=== PATIENT | male | born 1975 | race Caucasian/White ===

== ENCOUNTER 2018-02-09 00:45 | Emergency (ER) | payer OTHER ==
[~2018-02-09] VITALS: Ht 188 cm; Wt 103.0 kg
[2018-02-09 00:50] VITALS: BP 138/91; PULSE 81; RESP 18; TEMP 97.8; O2SAT 98
[2018-02-09] MEDS ORDERED: LIDOCAINE 1%/EPINEPHrine 1:100,000 SOLN 20 ML VIAL INFIL ONE (02:15)
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
--- NOTE | 2018-02-09 03:16 | RADRPT ---
EXAM DATE/TIME: 02/09/2018 02:30 [facility] COMPARISON: No previous studies available for comparison. INDICATIONS : Pain of the left first digit from unknown source. MEDICAL HISTORY : None. SURGICAL HISTORY : None. ENCOUNTER: Initial ACUITY: 1 day PAIN SCORE: 5/10 LOCATION: Left thumb FINDINGS: Three view examination of the left hand demonstrates no soft tissue swelling, dislocation, or fractur e. The carpal bones appear intact. The interphalangeal and metacarpophalangeal joints are intact. Bony mineralization is normal. CONCLUSION: Unremarkable examination of the left hand. Marcio Avalos MD on February 09, 2018 at 3:15 Board Certified Radiologist. This report was verified electronically.
--- NOTE | 2018-02-09 03:42 | PD ---
Data Data Last Documented VS Vital Signs Date Time Temp Pulse Resp B/P (MAP) Pulse Ox O2 Delivery O2 Flow Rate FiO2 02/09/18 00:50 97.8 81 18 138/91 (107) 98 Orders Orders Hand, Complete ([id number]) (02/09/18 02:12) Ct Brain W/O Iv Contrast(Rout) (02/09/18 02:12) Ct Cerv Spine W/O Contrast (02/09/18 02:12) Ct Facial Bones W/O Iv Cont (02/09/18 02:12) Lidocai-Epi 1%-1:100,000 Inj (Xylocaine- (02/09/18 02:15) MDM Medical Record Reviewed: Yes Supervised Visit with RITESH: No Narrative Course The patient verbally consents to laceration repair. Procedures Procedure Narrative LACERATION LOCATION: Right forehead LENGTH: 3 cm NUMBER OF STITCHES/ZOYA: 12 REPAIR: The area of the laceration was prepped with Betadine and sterilely draped. The laceration was infiltrated with 1% lidocaine with epinephrine. The wound was copiously irrigated and explored without evidence of foreign body , tendon injury or neurovascular injury. The wound was closed using 5-0 nylon simple interrupted this was a single layer repair. A sterile dressing was applied. The patient was advised to keep the dressing clean and dry. Patient tolerated the procedure well. Scripts No Active Prescriptions or Reported Meds Keyshawn Bustamante Feb 09, 2018 03:42
[2018-02-09 07:23] VITALS: BP 132/77; PULSE 97; RESP 18; O2SAT 99
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
[2018-02-09] MEDS ORDERED: NORC5TAB PO (09:11)
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
[2018-02-09] MEDS ORDERED: TETANUS/DIPHTHERIA TOXOID ADULT 0.5 ML VIAL IM ONE (10:00)
[2018-02-09 10:47] VITALS: BP 145/74
== END 2018-02-09 10:48 | disposition home or self-care (01) ==
LOC: EDBD 00:45 → NEPC 00:45
DX: S01.81XA Laceration without foreign body of other part of head, initial encounter (principal); S00.81XA Abrasion of other part of head, initial encounter; S00.83XA Contusion of other part of head, initial encounter; Z23 Encounter for immunization; W17.89XA Other fall from one level to another, initial encounter
CPT/HCPCS: 12013; 70450; 70486; 72125; 73130; 90471; 90714